=== PATIENT | male | born 1975 | race Caucasian/White ===

== ENCOUNTER 2018-09-29 08:51 | Outpatient (CLI) | payer OTHER ==
--- NOTE | 2018-09-29 09:47 | RAD ---
LEFT FOOT 3 VIEWS: Date: 09/29/18 HISTORY: Left foot pain. FINDINGS: Lisfranc joint alignment is anatomic. Plantar arch is maintained. Mild osteophytosis throughout the f oot. Well corticated ossification beyond the tip of the lateral malleolus has the appearance of an ol d ununited ossific avulsion. Plantar and Achilles enthesophytes from the posterior calcaneus with nohemy e fragmentation of the Achilles enthesophyte. No acute fracture, dislocation, or aggressive osseous erosions. IMPRESSION: 1. Mild degenerative changes. 2. Heel spurs. 3. Probable old injury of the tip of the lateral malleolus. POS: [facility]
== END 2018-09-29 08:52 | disposition home or self-care (01) ==
LOC: RAD-FRANK 08:51
PROVIDERS: ATTEND Nurse Practitioner Family
DX: M79.672 Pain in left foot (principal); M19.072 Primary osteoarthritis, left ankle and foot; M77.32 Calcaneal spur, left foot

== ENCOUNTER 2021-10-18 15:00 | Outpatient (CLI) | payer OTHER | END 2021-10-18 15:01 | disposition home or self-care (01) | LOC: RAD-FRANK 15:00 | PROVIDERS: ATTEND Nurse Practitioner Family | DX: M25.562 Pain in left knee (principal) ==